=== PATIENT | male | born 1960 | race Caucasian/White ===

== ENCOUNTER 2023-12-30 03:23 | Emergency (ER) | payer MEDICAID ==
[2023-12-30 05:21] VITALS: BP 121/68; TEMP 97.3; O2SAT 97
== END 2023-12-30 05:22 | disposition home or self-care (01) ==
LOC: EDBD 03:23 → M ED 03:23
DX: T83.091A Other mechanical complication of indwelling urethral catheter, initial encounter (principal); N40.1 Benign prostatic hyperplasia with lower urinary tract symptoms